=== PATIENT | male | born 1980 | race African-American/Black ===

== ENCOUNTER 2019-06-08 23:15 | Observation (INO) ==
[2019-06-09] MEDS ORDERED: ASPIRIN 325 MG TABLET PO STA (00:11)
[2019-06-09] MEDS ORDERED: KETOROLAC 30 MG/1 ML VIAL IV STA (00:11)
[2019-06-09] MEDS ORDERED: ORPHENADRINE 60 MG/2 ML VIAL IV STA (00:11)
[2019-06-09 00:21] LABS: Basophils % 0.4 % (0.0-0.8); Eosinophils # 0.3 10*3/uL (0.0-0.87); Eosinophils % 3.8 % (0.00-10.9); Hematocrit 39.2 VOL% (42.0-52.0); Hemoglobin 11.8 GM/DL (14.0-18.0); Immature Granulocytes % 0.4 %; Immature Granulocytes Absolute 0.03 #; Lymphocytes # 2.2 10*3/uL (1.4-4.0); Lymphocytes % 27.4 % (21.2-54.2); Mean Corpuscular HGB Conc 30.1 GM/DL (32-36); Mean Corpuscular Volume 95.1 FL (87-102); Mean Platelet Volume 9.7 FL (9.6-12.0); Monocytes % 12.1 % (1.7-12.7); Neutrophils % 55.9 % (38.7-73.9); Platelet Count 462 T/CUMM (130-400); Red Blood Count 4.12 MC/CUMM (3.8-5.5); Red Cell Distribution Width 12.8 % (9.3-17.3); White Blood Count 8.2 T/CUMM (4-12)
[2019-06-09 00:31] LABS: INR 0.9; PT Patient Result 10.2 SECS (9.6-12.2); Partial Thromboplastin Time 29.4 SECS (20.8-36.0)
[2019-06-09 00:34] LABS: Alanine Aminotransferase 21 U/L (16-61); Albumin 3.3 G/DL (3.4-5.0); Alkaline Phosphatase 75 U/L (45-117); Aspartate Amino Transferase 17 U/L (0-37); Bilirubin,Total < 0.39 MG/DL (0.2-1.0); Blood Urea Nitrogen 27 MG/DL (7-18); Calcium 9.3 MG/DL (8.5-10.1); Estimated Glom Filtration Rate 138 ML/MIN; Glucose 95 MG/DL (74-106); Osmolality,Calculated 279.7 MOS/KG (273-304); Total Protein 7.6 G/DL (6.4-8.3)
[2019-06-09 01:02] LABS: Apearance,Urine CLEAR (Clear); Bilirubin,Urine Negative (Negative); Blood, Urine Negative (Negative); Glucose,Urine (UA) Negative (Negative); Ketones,Urine Negative (Negative); Nitrite,Urine Negative (Negative); Protein,Urine Negative; RBC,Urine 3 /HPF (0-4); Squamous Epithelial Cell,Urine Occasional /HPF (0-10); Urine Color Yellow (Yellow); Urine Urobilinogen < 2.0 EU/DL (0.2-1.0); WBC,Urine 8 /HPF (0-6)
[2019-06-09 01:07] LABS: Barbiturates Screen,Urine Negative (Negative); Benzodiazepines Screen,Urine Negative (Negative); Cannabinoid Screen,Urine Positive (Negative); Opiate Screen,Urine Negative (Negative); Phencyclidine Screen,Urine Negative (Negative)
[2019-06-09] MEDS ORDERED: ORPHENADRINE 60 MG/2 ML VIAL ONE (01:22)
[2019-06-09] MEDS ORDERED: KETOROLAC 30 MG/1 ML VIAL ONE (01:23)
[2019-06-09] MEDS ORDERED: metroNIDAZOLE INJ 500 MG in PREMIX 1 EACH IV STA (01:27)
[2019-06-09] MEDS ORDERED: CIPROFLOXACIN INJ 400 MG in PREMIX 1 EACH IV STA (01:27)
[2019-06-09] MEDS ORDERED: metroNIDAZOLE 500 MG/100 ML PREMIX IV ONE (01:31)
[2019-06-09] MEDS ORDERED: CIPROFLOXACIN 400 MG/200 ML PREMIX IV ONE (01:31)
[2019-06-09] MEDS ORDERED: BISACODYL 5 MG TABLET PO PRN (01:55)
[2019-06-09] MEDS ORDERED: ONDANSETRON 4 MG/2 ML VIAL IV PRN (01:55)
[2019-06-09] MEDS ORDERED: hydrALAZINE 20 MG/1 ML VIAL IV PRN (01:55)
[2019-06-09] MEDS ORDERED: CALCIUM CARBONATE CHEW 500 MG TABLET PO PRN (01:55)
[2019-06-09] MEDS ORDERED: MORPHINE 4 MG/1 ML VIAL IV PRN (01:55)
[2019-06-09] MEDS ORDERED: NICOTINE 21 MG/24 HR PATCH TRANSDERM PRN (01:55)
[2019-06-09] MEDS ORDERED: SODIUM CHLORIDE 0.9% 1,000 ML IV SCH (02:00)
[2019-06-09] MEDS ORDERED: CIPROFLOXACIN INJ 400 MG in PREMIX 1 EACH IV ONE (10:09)
[2019-06-09] MEDS ORDERED: metroNIDAZOLE INJ 500 MG in PREMIX 1 EACH IV ONE (10:09)
[2019-06-09 12:30] VITALS: BP 157/95
[2019-06-09] MEDS ORDERED: metroNIDAZOLE INJ 500 MG in PREMIX 1 EACH IV SCH (14:00)
[2019-06-09] MEDS ORDERED: CIPROFLOXACIN INJ 400 MG in PREMIX 1 EACH IV SCH (14:00)
== END 2019-06-09 13:33 | disposition home or self-care (01) ==
LOC: N.EDINP 23:15 → N.ED 23:15 → SUATTDRO 06-09 02:07 → N.2W 06-09 03:52
PROVIDERS: ADMIT Family Medicine; ATTEND Internal Medicine